=== PATIENT | female | born 1990 | race Caucasian/White ===

== ENCOUNTER → 2016-07-23 | Outpatient (CLI) | payer BC ==
[2016-07-29 05:33] LABS: 18KDIGG BAND NONREACTIVE (NONREACTIVE); 23KDIGG BAND NONREACTIVE (NONREACTIVE); 23KDIGM BAND NONREACTIVE (NONREACTIVE); 28KDIGG BAND NONREACTIVE (NONREACTIVE); 30KDIGG BAND NONREACTIVE (NONREACTIVE); 39KDIGG BAND NONREACTIVE (NONREACTIVE); 39KDIGM BAND NONREACTIVE (NONREACTIVE); 41KDIGG BAND REACTIVE (NONREACTIVE); 41KDIGM BAND NONREACTIVE (NONREACTIVE); 45KDIGG BAND NONREACTIVE (NONREACTIVE); 58KDIGG BAND NONREACTIVE (NONREACTIVE); 66KDIGG BAND NONREACTIVE (NONREACTIVE); 93KDIGG BAND NONREACTIVE (NONREACTIVE)
== END | disposition home or self-care (01) ==
LOC: C.LAB 19:02
PROVIDERS: ATTEND Family Medicine
DX: R52 Pain, unspecified (principal)

== ENCOUNTER → 2016-11-26 | Outpatient (CLI) | payer BC | END | disposition home or self-care (01) | LOC: C.PAPS 08:44 | PROVIDERS: ATTEND Obstetrics & Gynecology | DX: Z01.419 Encounter for gynecological examination (general) (routine) without abnormal findings (principal) ==

== ENCOUNTER → 2017-02-03 | Outpatient (CLI) | payer BC ==
[2017-02-03 09:47] LABS: BLOOD UREA NITROGEN 12 mg/dl (7-18); BUN/CREATININE RATIO 15.7 (10-20); CALCIUM 8.7 mg/dl (8.5-10.1); CARBON DIOXIDE 27 mmol/L (21-32); CHLORIDE 105 mmol/L (98-107); CREATININE 0.75 mg/dl (0.60-1.20); GLUCOSE 86 mg/dl (70-99); POTASSIUM 3.9 mmol/L (3.5-5.1); SODIUM 139 mmol/L (136-145)
[2017-02-03 09:57] LABS: THYROID STIMULATING HORMONE 0.683 uIu/ml (0.300-4.500)
== END | disposition home or self-care (01) ==
LOC: C.LAB 07:24
PROVIDERS: ATTEND Nurse Practitioner Adult Health
DX: R00.2 Palpitations (principal); F41.9 Anxiety disorder, unspecified

== ENCOUNTER → 2017-02-12 | Outpatient (CLI) | payer BC ==
[2017-02-12 17:43] LABS: URINE APPEARANCE CLEAR (CLEAR); URINE BILIRUBIN NEG (NEG); URINE COLOR YELLOW; URINE NITRITE NEG (NEG); URINE SPECIFIC GRAVITY 1.014 (1.000-1.030); UROBILINOGEN NEG (NEG)
[2017-02-12 17:50] LABS: PREG INTERNAL NEGATIVE QC NEG CLEAR BACKGROUND; PREG INTERNAL POSITIVE QC POS CONTROL LINE
[2017-02-12 17:52] LABS: MANUAL MICROSCOPIC REQUIRED? NO; REVIEW REQ? NO
== END | disposition home or self-care (01) ==
LOC: C.LAB1850 16:55
PROVIDERS: ATTEND Nurse Practitioner Adult Health
DX: R10.9 Unspecified abdominal pain (principal)

== ENCOUNTER → 2017-02-17 | Outpatient (CLI) | payer BC ==
--- NOTE | 2017-02-17 08:42 | DIAGNOSTIC IMAGING REPORT ---
ULTRASOUND RIGHT UPPER QUADRANT ABDOMEN CLINICAL HISTORY: Right upper quadrant abdominal pain. COMPARISON STUDY: No priors. TECHNIQUE: Real-time, grayscale, and color flow sonography of the right upper quadrant of the abdomen was performed. Images are reviewed in the transverse and longitudinal planes. FINDINGS: Liver: The liver is normal in size and echotexture. There is no intrahepatic biliary ductal dilatation. The main portal vein is patent. Gallbladder: The gallbladder is normal in appearance. No gallstones are identified. There is no gallbladder wall thickening or pericholecystic fluid. A sonographic Bishop's sign is reportedly absent. The common bile duct measures up to 0.3 cm in diameter. Pancreas: Visualized portions of the pancreatic head and body are normal in appearance. Right kidney: Survey images of the right kidney demonstrate normal size and echotexture. There is no hydronephrosis. Ascites: None. IMPRESSION: Unremarkable sonographic assessment of the right upper quadrant. No gallstones are identified. Electronically signed by: Stefan Garcia M.D. 02/17/2017 8:40 AM Dictated Date/Time: 02/17/2017 8:40 AM
== END | disposition home or self-care (01) ==
LOC: C.ULTR 08:15
PROVIDERS: ATTEND Nurse Practitioner Adult Health
DX: R10.811 Right upper quadrant abdominal tenderness (principal)

== ENCOUNTER → 2017-05-25 | Outpatient (CLI) | payer BC, OTHER | END | disposition home or self-care (01) | LOC: C.PAPS 10:34 | PROVIDERS: ATTEND Obstetrics & Gynecology | DX: N87.0 Mild cervical dysplasia (principal) ==

== ENCOUNTER → 2017-12-31 | Outpatient (CLI) | payer OTHER ==
[~2017-12-31] MED LIST: CLR10 PO
== END | disposition home or self-care (01) ==
LOC: C.RDSM 08:51
PROVIDERS: ATTEND Orthopaedic Surgery Sports Medicine
DX: M25.562 Pain in left knee (principal); M25.572 Pain in left ankle and joints of left foot

== ENCOUNTER 2018-09-28 13:10 | Inpatient (IN) ==
[2018-09-28] MEDS ORDERED: OXYTOCIN 30 UNITS/500 ML BAG IV PRN ×2 (14:11)
[2018-09-28] MEDS ORDERED: PENICILLIN G POTASSIUM 6 MU in DEXTROSE 5% 250 ML IV STA (14:11)
[2018-09-28 14:32] LABS: Hemoglobin 13.5 g/dL (12.0-16.0); Mean Corpuscular Volume 93.8 fL (80-100); Mean Platelet Volume 10.7 fL (7.4-10.4); Platelet Count 155 K/uL (130-400); RDW Coefficient of Variation 13.6 % (11.5-14.5); RDW Standard Deviation 46.5 fL (36.4-46.3); Red Blood Count 4.05 M/uL (4.2-5.4); White Blood Count 13.88 K/uL (4.8-10.8)
[2018-09-28 14:37] LABS: Mean Corpuscular Hgb Conc 35.5 g/dL (32-36)
[2018-09-28] MEDS: LACTATED RINGER'S 1,000 ML IV PRN ×2 (15:01→20:48)
--- NOTE | 2018-09-28 15:12 | History & Physical Report ---
Date of Service September 28, 2018 Assessment & Plan (1) Supervision of normal intrauterine in primigravida: Gross rupture on physical examination Tracing category 1 GBS positive, will start penicillin We will start Pitocin for induction of labor Anticipate vaginal delivery History of Present Illness Chief Complaint: leaking fluid Primary Care Provider: Mick Wilson MD The patient is a 28-year-old 1 para 0 EDC of 03 October, at 39+ weeks gestational age, who presents to labor and delivery with leaking of fluid. Patient states that it 094 5 hours this morning she had a gush of fluid which continued. The patient was evaluated in the office and vaginal pooling was seen with negative ferning. She was sent to labor and delivery for further evaluation. The patient has had a benign course. Laboratory values for the show a blood type of O-, antibody negative, she received RhoGam on 22 March, she is rubella immune, hepatitis B negative, she declined cell free DNA screening, she declined quad screen, she had a normal 1 hour Glucola x2, and a positive third trimester beta strep culture Allergies Allergy/AdvReac Type Severity Reaction Status Date / Time No Known Allergies Allergy Unknown Verified 11/25/17 01:41 Home Medications Home Medications Medication Instructions Recorded Confirmed Type vit no.[id number] 1 tab PO DAILY 09/25/18 09/25/18 History [ Vitamin] Patient History Medical History Anxiety HPV (human papilloma virus) infection Surgical History History of ankle surgery Left, 2003 History of colposcopy x 2 Social History Preferred Language: Tajik Communication Ability: Effective Beliefs That Will Affect Care: None marital status: Current Living Situation: Spouse Feels Safe at Home: Yes Smoking Status: Never smoker Second Hand Exposure: No Hx Alcohol Use: No Hx Substance Use: No Physical Exam 2 Constitutional: WD/WN, vitals as above Respiratory: Auscultation: lungs clear to auscultation bilaterally Cardiovascular: RRR, no murmur, no edema Extremities: no calf tenderness Gastrointestinal (Abdomen): Gravid, vertex, positive heart tones, irregular contractions palpable, estimated weight of 8 pounds Genitourinary: Cervix: 4/75/-2, gross rupture Results & Data Vital Signs (Past 12 Hours) Vital Signs Temp Pulse Resp BP 09/28/18 13:32 97.9 F 22 09/28/18 13:19 97.9 F 09/28/18 13:18 100 H 115/75
[2018-09-28] MEDS: PENICILLIN G POTASSIUM 3 MU in DEXTROSE 5% 100 ML IV PRN ×2 (19:05→23:13)
[2018-09-28] MEDS ORDERED: BUPIVACAINE 0.25% 30 ML VIAL ONE (19:56)
[2018-09-28] MEDS ORDERED: ePHEDrine sulfate 50 MG/ML AMP ONE (19:56)
[2018-09-28] MEDS ORDERED: fentaNYL citrate 100 MCG/2 ML VIAL ONE (19:56)
[2018-09-28] MEDS ORDERED: fentaNYL 2MCG/ML ROPIV 1.25MG/ML 100 ML BAG EPI ONE (19:57)
--- NOTE | 2018-09-28 20:11 | Anesthesiology Consultation ---
Date of Service September 28, 2018 Assessment & Plan (1) Encounter for pre-operative examination: Chart Review Chart Review: Acceptable Risk for Surgery, Patient NOT seen in Pre Admission Testing and Acceptable Risk for Labor Epidural Consults Requested none ASA ASA2 Proposed Anesthesia Anesthesia Type: Labor Epidural Risk / Benefits Reviewed With: PT / POA / Parent / Guardian, Accepts Plan and Informed Consent Obtained History Height/Weight Height: 5 ft 6 in Weight: 95.708 kg Allergies Allergy/AdvReac Type Severity Reaction Status Date / Time No Known Allergies Allergy Unknown Verified 09/28/18 16:32 Medications Home Medications Medication Instructions Recorded Confirmed Last Taken vit no.[id number] 1 tab PO DAILY 09/25/18 09/28/18 09/28/18 [ Vitamin] 0630 Active Medications Generic Name Dose Route Start Last Admin Trade Name Freq PRN Reason Stop Dose Admin Lactated Ringer's 1,000 mls @ 125 mls/hr 09/28/18 14:11 09/28/18 20:48 Lr IV 09/30/18 14:10 125 mls/hr .Q8H PRN Administration L&D Protocol Protocol Penicillin G Potassium 3 mu/ 106 mls @ 100 mls/hr 09/28/18 14:11 09/28/18 20:10 Dextrose IV 10/08/18 14:10 Infused Q4H PRN Titration Give until delivery Oxytocin 30 units in 500 mls @ 9 mls/hr 09/28/18 14:11 09/28/18 18:59 Pitocin IV 09/30/18 14:10 0.54 units/hr .Q24H PRN 9 mls/hr Labor Induction/Augmentation Titration Protocol 0.54 UNITS/HR NPO Date Last Intake of Fluids: 09/28/18 Time Last Intake of Fluids: 20:41 Date Last Intake of Solids: 09/28/18 Time Last Intake of Solids: 08:30 Past Medical History Medical History Anxiety HPV (human papilloma virus) infection Exercise / Class Metabolic Activity II 4-5 Yardwork/Stairs/Walk up hill Past Surgical History Surgical History History of ankle surgery Left, 2003 History of colposcopy x 2 Past Anesthesia History No Hx of Anesthesia Complications History of PONV No Hx of PONV and Hx of Motion Sickness Social History Smoking Status: Never smoker Hx Alcohol Use: No Hx Substance Use: No substance use type: does not use Review of Systems Patient denies active symptoms of GERD. Patient denies history of abnormal bleeding or bleeding disorder. Patient denies active use of anticoagulants other than low dose aspirin. Patient denies numbness, tingling or weakness in lower extremities. Physical Exam Vital Signs Last Vital Signs Temp 36.6 C 09/28/18 17:27 Pulse 97 H 09/28/18 20:01 Resp 18 09/28/18 17:49 BP 123/73 09/28/18 19:14 Pulse Ox 99 09/28/18 20:01 Constitutional not obese (Gravid uterus) ENMT Mouth: no TMJ abnormality and oral opening not small Thyromental Distance: > or= 3.5 Finger Breadths Mallampati Class: III Neck normal visual inspection; neck extension not limited Respiratory normal respiratory effort Auscultation: lungs clear to auscultation bilaterally Cardiovascular Rate/Rhythm: regular rate and regular rhythm Heart Sounds: no murmur Neurologic moves all extremities Motor/Sensory: no sensory deficit Psychiatric Orientation: alert and oriented x 3 Testing Laboratory Results 09/28/18 14:20
[2018-09-28] MEDS ORDERED: NALOXONE HCL 1 MG in SODIUM CHLORIDE 0.9% 1000ML 1,000 ML IV PRN (20:51)
[2018-09-28] MEDS ORDERED: NALOXONE HCL 0.4 MG/1 ML VIAL/CARP IV PRN (20:51)
[2018-09-28] MEDS ORDERED: fentaNYL 2MCG/ML ROPIV 1.25MG/ML 100 ML BAG EPI PRN (20:51)
[2018-09-28] MEDS ORDERED: DiphenhydrAMINE HCL 50 MG/ML VIAL IV PRN (20:51)
[2018-09-28] MEDS ORDERED: NALBUPHINE HCL INJ 10 MG/ML AMP IV PRN (20:51)
[2018-09-28] MEDS ORDERED: ONDANSETRON INJ 2 MG/ML 2 ML VIAL IV PRN (20:51)
[2018-09-28] MEDS ORDERED: ePHEDrine sulfate 50 MG/ML AMP IV PRN (20:51)
--- NOTE | 2018-09-28 21:20 | Labor Progress Brief Note ---
Date of Service September 28, 2018 Assessment & Plan (1) Supervision of normal intrauterine in primigravida: - tracing Cat II - patient comfortable with epidural - continue pitocin Physical Exam Genitourinary: Cervix; 8/100/(+)1 Results & Data Vital Signs (Past 12 Hours) Vital Signs Temp Pulse Resp BP Pulse Ox 09/28/18 21:17 99 H 89/53 L 09/28/18 21:14 95 H 98 09/28/18 21:13 89 90/53 L 09/28/18 21:09 93 H 99 09/28/18 21:04 96 H 99 09/28/18 21:01 94 H 114/69 09/28/18 20:59 102 H 112/65 98 09/28/18 20:57 95 H 118/70 09/28/18 20:55 88 120/70 09/28/18 20:54 86 98 09/28/18 20:53 86 125/70 09/28/18 20:51 91 H 115/65 09/28/18 20:49 91 H 119/69 99 09/28/18 20:47 93 H 123/73 09/28/18 20:45 86 121/72 09/28/18 20:44 95 H 99 09/28/18 20:43 100 H 115/61 09/28/18 20:41 92 H 119/68 09/28/18 20:39 95 H 122/71 98 09/28/18 20:37 88 121/82 09/28/18 20:35 96 H 136/83 09/28/18 20:34 108 H 100 09/28/18 20:33 105 H 133/83 09/28/18 20:31 97 H 136/88 09/28/18 20:29 98 H 134/82 97 09/28/18 20:24 95 H 98 09/28/18 20:19 95 H 98 09/28/18 20:14 101 H 98 09/28/18 20:09 99 H 98 09/28/18 20:01 97 H 99 09/28/18 19:56 95 H 100 09/28/18 19:51 96 H 99 09/28/18 19:46 89 99 09/28/18 19:41 102 H 100 09/28/18 19:37 101 H 92 09/28/18 19:36 84 100 09/28/18 19:31 90 99 09/28/18 19:26 101 H 99 09/28/18 19:21 90 99 09/28/18 19:16 91 H 98 09/28/18 19:14 95 H 123/73 09/28/18 19:13 97.5 F L 18 09/28/18 19:11 106 H 98 09/28/18 19:06 86 98 09/28/18 19:01 95 H 97 09/28/18 18:56 92 H 98 09/28/18 18:51 117 H 96 09/28/18 17:49 18 09/28/18 17:27 97.9 F 116 H 20 124/82 09/28/18 16:50 20 09/28/18 16:16 83 123/74 09/28/18 16:15 97.7 F 20 09/28/18 15:47 18 09/28/18 15:19 18 09/28/18 15:13 107 H 113/76 09/28/18 13:32 97.9 F 22 09/28/18 13:19 97.9 F 22 09/28/18 13:18 100 H 115/75
--- NOTE | 2018-09-28 23:04 | Labor Progress Brief Note ---
Date of Service September 28, 2018 Subjective can't feel contractions Assessment & Plan (1) Supervision of normal intrauterine in primigravida: - tracing Cat II - patient cannot feel ctx's - will decrease epidural rate to 7 - once patient can feel ctx's, will start 2nd stage Physical Exam Genitourinary: Cervix: Complete/(+)1 Results & Data Vital Signs (Past 12 Hours) Vital Signs Temp Pulse Resp BP Pulse Ox 09/28/18 22:59 103 H 100 09/28/18 22:54 111 H 99 09/28/18 22:49 98 H 116/66 99 09/28/18 22:44 93 H 100 09/28/18 22:39 102 H 100 09/28/18 22:35 93 H 126/69 09/28/18 22:34 93 H 100 09/28/18 22:30 20 09/28/18 22:29 117 H 100 09/28/18 22:28 115 H 92 09/28/18 22:24 98 H 100 09/28/18 22:20 96 H 131/75 09/28/18 22:19 107 H 100 09/28/18 22:14 98 H 100 09/28/18 22:09 97 H 99 09/28/18 22:04 89 99 09/28/18 22:03 89 115/70 09/28/18 22:00 18 09/28/18 21:59 101 H 99 09/28/18 21:57 103 H 110/63 09/28/18 21:54 117 H 100 09/28/18 21:52 114 H 117/62 09/28/18 21:49 110 H 100 09/28/18 21:47 95 H 88/50 L 09/28/18 21:44 87 100 09/28/18 21:42 81 99/55 L 09/28/18 21:39 86 100 09/28/18 21:36 86 97/56 L 09/28/18 21:34 85 99 09/28/18 21:31 107 H 103/55 L 09/28/18 21:30 18 09/28/18 21:29 80 99 09/28/18 21:27 80 97/53 L 09/28/18 21:24 84 100 09/28/18 21:20 100 H 93/53 L 09/28/18 21:19 99 H 99 09/28/18 21:17 99 H 89/53 L 09/28/18 21:15 97.5 F L 16 09/28/18 21:14 95 H 98 09/28/18 21:13 89 90/53 L 09/28/18 21:09 93 H 99 09/28/18 21:04 96 H 99 09/28/18 21:01 94 H 114/69 09/28/18 21:00 18 09/28/18 20:59 102 H 112/65 98 09/28/18 20:57 95 H 118/70 09/28/18 20:55 88 120/70 09/28/18 20:54 86 98 09/28/18 20:53 86 125/70 09/28/18 20:51 91 H 115/65 09/28/18 20:49 91 H 119/69 99 09/28/18 20:47 93 H 123/73 09/28/18 20:45 86 18 121/72 05 20:44 95 H 99 09/28/18 20:43 100 H 115/61 09/28/18 20:41 92 H 119/68 09/28/18 20:39 95 H 122/71 98 09/28/18 20:37 88 121/82 05 20:35 96 H 136/83 09/28/18 20:34 108 H 100 09/28/18 20:33 105 H 133/83 09/28/18 20:31 97 H 136/88 09/28/18 20:29 98 H 134/82 97 09/28/18 20:24 95 H 98 09/28/18 20:19 95 H 98 09/28/18 20:14 101 H 98 09/28/18 20:09 99 H 98 09/28/18 20:01 97 H 99 09/28/18 19:56 95 H 100 09/28/18 19:51 96 H 99 09/28/18 19:46 89 99 05 19:41 102 H 100 09/28/18 19:37 101 H 92 09/28/18 19:36 84 100 05 19:31 90 99 05 19:26 101 H 99 09/28/18 19:21 90 99 09/28/18 19:16 91 H 98 09/28/18 19:14 95 H 123/73 09/28/18 19:13 97.5 F L 18 09/28/18 19:11 106 H 98 09/28/18 19:06 86 98 09/28/18 19:01 95 H 97 09/28/18 18:56 92 H 98 09/28/18 18:51 117 H 96 09/28/18 17:49 18 09/28/18 17:27 97.9 F 116 H 20 124/82 09/28/18 16:50 20 09/28/18 16:16 83 123/74 09/28/18 16:15 97.7 F 20 09/28/18 15:47 18 09/28/18 15:19 18 09/28/18 15:13 107 H 113/76 09/28/18 13:32 97.9 F 22 09/28/18 13:19 97.9 F 22 09/28/18 13:18 100 H 115/75
[2018-09-28] MEDS ORDERED: Nursing to Pharmacy Communication ONE (23:10)
[2018-09-29 01:29] LABS: Base Excess Cord Arterial Bld -6.3 mEq/L (-9-1.8); Base Excess Cord Venous Blood -4.3 mEq/L (-7.7-1.9); CO2 Cord Arterial Blood 60 mmHg (39.1-73.5); Cord Venous Blood HCO3 21 mmol/L (18.4-26.8); Cord Venous Blood PCO2 39 mmHg (30.4-57.2); Cord Venous Blood PO2 31 mmHg (14.1-43.3); Cord Venous Blood pH 7.35 (7.20-7.44); HCO3 Cord Arterial Blood 23 mmol/L (19.7-28.5); PO2 Cord Arterial Blood 25.4 % (4.1-31.7)
--- NOTE | 2018-09-29 01:33 | Delivery Summary ---
DATE OF OPERATION: 09/29/2018 FINDINGS: Viable female with Apgars of 8 and 10. Baby delivered over a midline second-degree laceration. Cord gases, cord blood samples obtained. Placenta delivered spontaneously. Laceration repaired. Estimated blood loss 300 mL LABOR NOTE: The patient is a 28-year-old 1, para 0 with an EDC of 10/03/2018 at 39+ weeks gestational age who presented to Labor and Delivery for evaluation of leaking fluid. The patient states that at 0945 on 09/28/2018, she had a gush of fluid which continued. The patient was initially evaluated in the office and vaginal pooling was seen with negative ferning. She was sent to Labor and Delivery for further evaluation. The patient has had a benign course. Laboratory values for the show a blood type of O negative, antibody negative. She received RhoGAM on 03/22/2018. She is rubella immune, hepatitis B negative. She declined cell free DNA screening, she declined quad screen, she had normal 1-hour Glucola x2 and a positive third trimester beta strep culture. Upon admission, physical examination showed a gravid female, in no acute distress. Cervix was 4 cm dilated, 75% effaced, -2 station with gross rupture. The patient was GBS positive and was started on penicillin 6 million unit loading dose and 3 million units every 4 hours until delivery. Because of the ruptured membranes and positive GBS status, Pitocin was initiated for the spontaneous rupture of membranes. The patient progressed into a regular labor pattern, became uncomfortable. Anesthesia was consulted and epidural was placed. She progressed to full dilatation, began her second stage. She pushed for approximately 1 hour delivering the viable female with description as above. Nuchal cord x1 was reduced on the perineum. Cord was clamped and cut. Cord gases, cord blood samples obtained. Placenta was delivered spontaneously. Inspection of the perineum showed a midline second-degree laceration which was repaired with 4-0 Vicryl in routine fashion. Estimated blood loss was 300 mL. Sponge and needle count was correct. I attest to the content of the Intraoperative Record and any orders documented therein. Any exception s are noted below.
[2018-09-29] MEDS ORDERED: HYDROCORTISONE ACETATE 25 MG SUPP PR PRN (02:21)
[2018-09-29] MEDS ORDERED: BENZOCAINE 20% AER SPR 82.5 GM CAN EXT PRN (02:21)
[2018-09-29] MEDS ORDERED: SUPERCREAM 0.870% 15 GM JAR EXT PRN (02:21)
[2018-09-29] MEDS ORDERED: ACETAMINOPHEN W/CODEINE #3 1 TAB PO PRN (02:21)
[2018-09-29] MEDS ORDERED: ACETAMINOPHEN 325 MG TAB PO PRN (02:21)
[2018-09-29] MEDS ORDERED: OXYTOCIN 30 UNITS/500 ML BAG IV PRN (02:21)
--- NOTE | 2018-09-29 02:24 | Anesthesia Procedure Note ---
Date of Service September 29, 2018 Anesthesia Post Epidural Note Vital Signs Vital Signs: Temp Pulse Resp BP Pulse Ox 09/29/18 01:49 101 H 20 102/56 L 09/29/18 01:34 88 18 111/61 09/29/18 01:19 86 18 107/57 L 09/29/18 01:04 100 H 20 118/56 L 09/29/18 00:49 93 H 18 133/56 L 96 09/29/18 00:44 104 H 96 09/29/18 00:39 107 H 97 09/29/18 00:34 107 H 122/63 97 09/29/18 00:30 20 09/29/18 00:29 98 H 97 09/29/18 00:24 98 H 97 09/29/18 00:21 104 H 117/56 L 09/29/18 00:19 104 H 97 09/29/18 00:15 20 09/29/18 00:14 105 H 98 09/29/18 00:09 103 H 98 09/29/18 00:04 99 H 115/58 L 99 09/29/18 00:00 18 09/28/18 23:59 106 H 99 09/28/18 23:54 101 H 99 09/28/18 23:49 104 H 128/64 100 09/28/18 23:44 99 H 99 09/28/18 23:39 101 H 99 09/28/18 23:35 104 H 117/73 09/28/18 23:34 97 H 99 09/28/18 23:30 36.9 C 18 09/28/18 23:29 116 H 98 09/28/18 23:24 109 H 99 09/28/18 23:19 110 H 118/66 99 09/28/18 23:14 103 H 100 09/28/18 23:09 104 H 99 09/28/18 23:05 107 H 121/62 09/28/18 23:04 107 H 100 09/28/18 23:00 18 09/28/18 22:59 103 H 100 09/28/18 22:54 111 H 99 09/28/18 22:49 98 H 116/66 99 09/28/18 22:44 93 H 100 09/28/18 22:39 102 H 100 09/28/18 22:35 93 H 126/69 09/28/18 22:34 93 H 100 09/28/18 22:30 20 09/28/18 22:29 117 H 100 09/28/18 22:28 115 H 92 09/28/18 22:24 98 H 100 09/28/18 22:20 96 H 131/75 09/28/18 22:19 107 H 100 09/28/18 22:14 98 H 100 09/28/18 22:09 97 H 99 09/28/18 22:04 89 99 09/28/18 22:03 89 115/70 09/28/18 22:00 18 09/28/18 21:59 101 H 99 09/28/18 21:57 103 H 110/63 09/28/18 21:54 117 H 100 09/28/18 21:52 114 H 117/62 09/28/18 21:49 110 H 100 09/28/18 21:47 95 H 88/50 L 09/28/18 21:44 87 100 09/28/18 21:42 81 99/55 L 09/28/18 21:39 86 100 09/28/18 21:36 86 97/56 L 09/28/18 21:34 85 99 09/28/18 21:31 107 H 103/55 L 09/28/18 21:30 18 09/28/18 21:29 80 99 09/28/18 21:27 80 97/53 L 09/28/18 21:24 84 100 09/28/18 21:20 100 H 93/53 L 09/28/18 21:19 99 H 99 09/28/18 21:17 99 H 89/53 L 09/28/18 21:15 36.4 C L 16 09/28/18 21:14 95 H 98 09/28/18 21:13 89 90/53 L 09/28/18 21:09 93 H 99 09/28/18 21:04 96 H 99 09/28/18 21:01 94 H 114/69 09/28/18 21:00 18 09/28/18 20:59 102 H 112/65 98 09/28/18 20:57 95 H 118/70 09/28/18 20:55 88 120/70 09/28/18 20:54 86 98 09/28/18 20:53 86 125/70 09/28/18 20:51 91 H 115/65 09/28/18 20:49 91 H 119/69 99 09/28/18 20:47 93 H 123/73 09/28/18 20:45 86 18 121/72 09/28/18 20:44 95 H 99 09/28/18 20:43 100 H 115/61 09/28/18 20:41 92 H 119/68 09/28/18 20:39 95 H 122/71 98 09/28/18 20:37 88 121/82 09/28/18 20:35 96 H 136/83 09/28/18 20:34 108 H 100 09/28/18 20:33 105 H 133/83 09/28/18 20:31 97 H 136/88 09/28/18 20:29 98 H 134/82 97 09/28/18 20:24 95 H 98 09/28/18 20:19 95 H 98 09/28/18 20:14 101 H 98 09/28/18 20:09 99 H 98 09/28/18 20:01 97 H 99 09/28/18 19:56 95 H 100 09/28/18 19:51 96 H 99 09/28/18 19:46 89 99 09/28/18 19:41 102 H 100 09/28/18 19:37 101 H 92 09/28/18 19:36 84 100 09/28/18 19:31 90 99 09/28/18 19:26 101 H 99 09/28/18 19:21 90 99 09/28/18 19:16 91 H 98 09/28/18 19:14 95 H 123/73 09/28/18 19:13 36.4 C L 18 09/28/18 19:11 106 H 98 09/28/18 19:06 86 98 09/28/18 19:01 95 H 97 09/28/18 18:56 92 H 98 09/28/18 18:51 117 H 96 09/28/18 17:49 18 09/28/18 17:27 36.6 C 116 H 20 124/82 09/28/18 16:50 20 09/28/18 16:16 83 123/74 09/28/18 16:15 36.5 C 20 09/28/18 15:47 18 09/28/18 15:19 18 09/28/18 15:13 107 H 113/76 09/28/18 13:32 36.6 C 22 09/28/18 13:19 36.6 C 22 09/28/18 13:18 100 H 115/75 Pain Intensity Medial Abdomen: Pain Intensity: 0 Notes Mental Status: alert / awake / arousable and participated in evaluation Nausea / Vomiting: adequately controlled Pain: adequately controlled Airway Patency, RR, SpO2: stable & adequate BP & HR: stable & adequate Hydration State: stable & adequate Neuraxial Anesthesia: was administered and sensory block is resolving Anesthetic Complications: no major complications apparent and Pt Satisfied with anesthetic care Epidural: Removed without complications and With tip intact Notes: Epidural site clean, dry and intact. No signs of edema, erythema or bruising at insertion site. Pt instructed to request anesthesia if she has residual lower extremity numbness or if she develops lower extremity pain or weakness, back pain or headache.
[2018-09-29] MEDS ORDERED: CALCIUM CARBONATE 500 MG CHEWABLE TAB PO PRN (02:27)
[2018-09-29] MEDS ORDERED: CALCIUM CARBONATE 500 MG CHEWABLE TAB ONE (02:46)
[2018-09-29] MEDS: IBUPROFEN 600 MG TAB PO PRN ×4 (05:49→20:06)
[2018-09-29] MEDS: FERROUS SULFATE 325 MG TAB PO SCH (10:18)
[2018-09-29] MEDS: DOCUSATE SODIUM 100 MG CAP PO SCH ×2 (10:18→20:06)
[2018-09-29] MEDS: PRENATAL VITAMIN 1 TAB PO SCH (10:18)
[2018-09-30 06:20] LABS: Hemoglobin 12.7 g/dL (12.0-16.0); Mean Corpuscular Hgb Conc 34.3 g/dL (32-36); Mean Corpuscular Volume 96.6 fL (80-100); Mean Platelet Volume 10.5 fL (7.4-10.4); Platelet Count 163 K/uL (130-400); RDW Coefficient of Variation 14.2 % (11.5-14.5); RDW Standard Deviation 50.3 fL (36.4-46.3); Red Blood Count 3.83 M/uL (4.2-5.4); White Blood Count 10.88 K/uL (4.8-10.8)
--- NOTE | 2018-09-30 07:53 | Obstetrical Progress Note ---
Date of Service September 30, 2018 Assessment & Plan (1) Normal delivery at term: doing well, desires d/c home later today. f/u 6 wk pp check. instructions reviewed. Subjective Ambulation: ambulating normally Voiding: no voiding problems Diet Tolerance:: regular diet Lochia:: Small Feeding Type:: breast feeding desires d/c home later today Physical Exam Vital Signs (Past 24 Hours) Last Vital Signs Temp 98.4 F 09/29/18 23:45 Pulse 85 09/29/18 23:45 Resp 18 09/29/18 23:45 BP 103/69 09/29/18 23:45 Pulse Ox 99 09/29/18 16:10 Constitutional WD/WN, vitals as above Respiratory normal respiratory effort, lungs clear to auscultation Cardiovascular Rate/Rhythm: regular rate and regular rhythm Gastrointestinal (Abdomen) ff 2 down nt Musculoskeletal nt calves
[2018-09-30] MEDS: DOCUSATE SODIUM 100 MG CAP PO SCH (08:47)
[2018-09-30] MEDS: IBUPROFEN 600 MG TAB PO PRN (08:47)
[2018-09-30] MEDS: PRENATAL VITAMIN 1 TAB PO SCH (08:47)
[2018-09-30] MEDS: FERROUS SULFATE 325 MG TAB PO SCH (08:47)
[2018-09-30] MEDS ORDERED: DIPHTHERIA/TETANUS/PERTUSSIS 0.5 ML SYR/VIAL IM ONE (09:00)
[2018-09-30] MEDS ORDERED: BISACODYL 5 MG TABEC PO SCH (20:00)
== END 2018-09-30 14:30 | disposition home or self-care (01) | DRG 807 ==
LOC: OPB 13:10 → 4S1 13:13 → 4N 09-29 03:50

== ENCOUNTER 2021-05-14 19:44 | Inpatient (IN) ==
[2021-05-14] MEDS ORDERED: LACTATED RINGER'S 1,000 ML IV PRN (20:29)
[2021-05-14] MEDS ORDERED: OXYTOCIN 30 UNITS/500 ML BAG IV PRN (20:29)
[2021-05-14 20:52] LABS: Hematocrit (blood only) 37.5 % (37-47); Mean Corpuscular Hemoglobin 33.7 pg (25-34); Mean Corpuscular Hgb Conc 34.7 g/dL (32-36); Mean Corpuscular Volume 97.2 fL (80-100); Mean Platelet Volume 10.9 fL (7.4-10.4); Platelet Count 192 K/uL (130-400); RDW Coefficient of Variation 13.6 % (11.5-14.5); RDW Standard Deviation 48.5 fL (36.4-46.3); Red Blood Count 3.86 M/uL (4.2-5.4); White Blood Count 9.73 K/uL (4.8-10.8)
--- NOTE | 2021-05-14 21:10 | History & Physical Report ---
Date of Service May 14, 2021 Assessment & Plan (1) Normal labor: Plan: IUP at 40 weeks with advanced dilation and regular contractions will AROM when admission completed planning unmedicated but epidural analgesia if requested anticipate vaginal delivery Admission and Anticipated Discharge Date Admission Date: May 14, 2021 History of Present Illness Primary Care Provider: Mick Wilson MD Patient is a 30 yo white female EDC 05/14/21 who presents with regular contractions starting after cervix exam today at her OB visit. (-)SPROM or bloody show. She was 5-6 cm on prior exam. GBS-negative O-negative Allergies Allergy/AdvReac Type Severity Reaction Status Date / Time No Known Allergies Allergy Unknown Verified 05/14/21 08:46 No Known Drug Allergies Allergy Uncoded 02/19/21 09:03 Home Medications Medication Instructions Recorded Confirmed Type prenat.vits,kamla,xtb-vpma-uyfxd 1 tab PO DAILY 05/08/20 05/14/21 History Patient History Medical History (Updated 05/14/21 @ 21:08 by Marilyn Wills MD, FACOG) Anxiety Arthralgia of multiple joints ASCUS with positive high risk HPV cervical 01/29/2016 & 02/09/2014 Chondrocostal junction syndrome MECCA I (cervical intraepithelial neoplasia I) Encounter for anatomic survey Encounter for pre-operative examination 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 H/O varicella Menstrual migraine Miscarriage Premature rupture of membranes Supervision of normal intrauterine in multigravida Surgical History History of ankle surgery Left, 2003 History of colposcopy 04/24/16 & 03/09/14-Both results CINI S/P dilatation and curettage Family History Father Atrial fibrillation Mother Breast cancer, Onset Age: 42 Thyroid disorder Aunt Diabetes Thyroid disorder Maternal Grandmother (Maternal) Thyroid disorder Denies family history of Ovarian cancer Colorectal cancer Social History Smoking Status: Never smoker Second Hand Exposure: No; Hx Alcohol Use: No Hx Substance Use: No Preferred Language: [place] Communication Ability: Effective Mortgage Originator Required: No Beliefs That Will Affect Care: None marital status: marital status details: Javier Gonsales (30) [phone] Current Living Situation: Spouse and Family Current Living Situation Comment: lives with spouse, daughter, 1 dog, 1 cat, spouse to change litter. current occupational status: employed current occupation: real estate Other Information That Helps Us Care for You: No Feels Safe at Home: Yes Safety Concerns: Feels Safe At This Time Assistive Devices: None Review of Systems All systems reviewed & are unremarkable except as noted in HPI & below Physical Exam Constitutional: WD/WN, vitals as above Respiratory: normal respiratory effort, lungs clear to auscultation Cardiovascular: RRR, no murmur, no edema Psychiatric: A+Ox3, euthymic affect Genitourinary: OB Exam Abdomen: + vertex and + regular contractions ( Q 3-5 minutes) Manual OB Exam: + cervical dilation 7 cm, + cervical effacement 90% and + station -2 OB Exam Monitor Tracing: + external FHT monitor used, + external uterine monitor used, + category I and + normal FHT variability Results & Data ([facility]) Vital Signs (Past 12 Hours) Vital Signs Temp Pulse Resp BP 05/14/21 20:01 98.1 F 18 05/14/21 19:56 89 120/73 Code Status & VTE Plan VTE Prophylaxis Plan VTE Prophylaxis will be ordered: No Coding Level of Care Code None Diagnoses Normal labor O80; Z37.9
[2021-05-14] MEDS ORDERED: ePHEDrine sulfate 50 MG/ML AMP ONE (22:24)
[2021-05-14] MEDS ORDERED: SODIUM CHLORIDE 0.9% INJ 10 ML VIAL ONE (22:24)
[2021-05-14] MEDS ORDERED: fentaNYL citrate 100 MCG/2 ML VIAL ONE (22:24)
[2021-05-14] MEDS ORDERED: BUPIVACAINE 0.25% 30 ML VIAL ONE (22:24)
[2021-05-14] MEDS ORDERED: fentaNYL 2MCG/ML ROPIVACAINE 1.25MG/ML 100 ML BAG EPI ONE (22:25)
[2021-05-15] MEDS ORDERED: DIPHTHERIA/TETANUS/PERTUSSIS 0.5 ML SYR/VIAL IM ONE (02:06)
[2021-05-15] MEDS ORDERED: SUPERCREAM 0.870% 15 GM JAR EXT PRN (02:06)
[2021-05-15] MEDS ORDERED: HYDROCORTISONE ACETATE 25 MG SUPP PR PRN (02:06)
[2021-05-15] MEDS ORDERED: BENZOCAINE 20% AER SPR 82.5 GM CAN EXT PRN (02:06)
[2021-05-15] MEDS ORDERED: ACETAMINOPHEN 325 MG TAB PO PRN (02:06)
[2021-05-15] MEDS ORDERED: oxyCODONE/ACETAMINOPHEN 5mg/325mg TAB PO PRN (02:06)
[2021-05-15] MEDS ORDERED: OXYTOCIN 30 UNITS/500 ML BAG IV PRN (02:06)
[2021-05-15] MEDS ORDERED: ONDANSETRON INJ 2 MG/ML 2 ML VIAL IV PRN (02:10)
[2021-05-15] MEDS ORDERED: diphenhydrAMINE 50 MG/ML VIAL IV PRN (02:10)
[2021-05-15] MEDS ORDERED: NALBUPHINE HCL INJ 10 MG/ML AMP IV PRN (02:10)
[2021-05-15] MEDS ORDERED: fentaNYL 2MCG/ML ROPIVACAINE 1.25MG/ML 100 ML BAG EPI PRN (02:10)
[2021-05-15] MEDS ORDERED: ePHEDrine sulfate 50 MG/ML AMP IV PRN (02:10)
[2021-05-15] MEDS ORDERED: NALOXONE HCL 1 MG in SODIUM CHLORIDE 0.9% 1000ML 1,000 ML IV PRN (02:10)
[2021-05-15] MEDS ORDERED: NALOXONE HCL 0.4 MG/1 ML VIAL/CARP IV PRN (02:10)
--- NOTE | 2021-05-15 02:14 | Delivery Summary ---
Vaginal Delivery Summary Date of Service May 15, 2021 Vaginal Delivery Summary and 1st Degree LAC Patient is a 30-year-old 2 para 1-0-0-1 white female [facility] who presents with regular contractions. Membranes were ruptured for clear fluid. She requested epidural dural analgesia which was effective. She progressed to complete dilation with the urge to push. She pushed effectively over intact perineum for delivery of a viable female . The was delivered from the direct occiput posterior presentation. Rest of the delivered easily. She was placed on the mother's abdomen for further attention and drying. She was vigorous and crying and moving all 4 limbs. After 1 minute, the cord was clamped and cut. The placenta was expressed intact with a three-vessel cord. bleeding was controlled with dilute Pitocin and fundal massage. A first-degree perineal laceration was repaired with 3-0 chromic in the usual fashion. Estimated blood loss was 200 cc. Mother and were in good condition after delivery. [facility] [place] Delivery Charge Delivery Type Details: and 1st Degree LAC
[2021-05-15] MEDS: IBUPROFEN 600 MG TAB PO PRN ×3 (04:43→16:51)
--- NOTE | 2021-05-15 06:45 | Anesthesiology Consultation ---
Date of Service May 15, 2021 Assessment & Plan (1) Encounter for pre-operative examination: Chart Review Chart Review: Patient NOT seen in Pre Admission Testing and Acceptable Risk for Labor Epidural Consults Requested none History Height/Weight Height: 5 ft 7 in Weight: 100.244 kg Allergies Allergy/AdvReac Type Severity Reaction Status Date / Time No Known Allergies Allergy Unknown Verified 05/14/21 08:46 No Known Drug Allergies Allergy Uncoded 02/19/21 09:03 Medications Home Medications Medication Instructions Recorded Confirmed Last Taken prenat.vits,kamla,bta-tnue-pojdo 1 tab PO DAILY 05/08/20 05/14/21 05/14/21 Active Medications Generic Name Dose Route Start Last Admin Trade Name Freq PRN Reason Stop Dose Admin Benzocaine 1 appln 05/15/21 02:06 05/15/21 04:22 Benzocaine 20% Aer Spr 82.5 Gm Can EXT 06/14/21 02:05 1 appln PRN PRN Administration Perineal Discomfort Oxytocin 30 units in 500 mls @ 333.333 mls/hr 05/14/21 20:29 05/15/21 02:28 Pitocin IV 06/13/21 20:28 Infused .Q1H30M PRN Titration Bleeding Control Protocol 20 UNITS/HR Lactated Ringer's 1,000 mls @ 125 mls/hr 05/14/21 20:29 05/15/21 02:23 Lr IV 05/16/21 20:28 Infused .Q8H PRN Infusion L&D Protocol Protocol Ibuprofen 600 mg 05/15/21 02:06 05/15/21 04:43 Ibuprofen 600 Mg Tab PO 06/14/21 02:05 600 mg Q4H PRN Administration Pain/HERNANDEZ/Cramping/Fever Past Medical History Medical History Anxiety Arthralgia of multiple joints ASCUS with positive high risk HPV cervical 01/29/2016 & 02/09/2014 Chondrocostal junction syndrome MECCA I (cervical intraepithelial neoplasia I) Encounter for anatomic survey Encounter for pre-operative examination 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 H/O varicella Menstrual migraine Miscarriage Premature rupture of membranes Supervision of normal intrauterine in multigravida Exercise / Class Metabolic Activity II 4-5 Yardwork/Stairs/Walk up hill Past Family History Family History Father Atrial fibrillation Mother Breast cancer, Onset Age: 42 Thyroid disorder Aunt Diabetes Thyroid disorder Maternal Grandmother (Maternal) Thyroid disorder Denies family history of Ovarian cancer Colorectal cancer Past Surgical History Surgical History History of ankle surgery Left, 2003 History of colposcopy 04/24/16 & 03/09/14-Both results CINI S/P dilatation and curettage Past Anesthesia History No Hx of Anesthesia Complications and No Family Hx of Anesthesia Complications History of PONV No Hx of PONV and No Hx of Motion Sickness Social History Smoking Status: Never smoker Do You Dip or Chew Tobacco: No Hx Alcohol Use: No Hx Substance Use: No substance use type: does not use Physical Exam Vital Signs Last Vital Signs Temp 36.5 C 05/15/21 04:35 Pulse 64 05/15/21 04:35 Resp 18 05/15/21 04:35 BP 106/69 05/15/21 04:35 Pulse Ox 95 05/15/21 02:00 Testing Laboratory Results 05/14/21 20:40
--- NOTE | 2021-05-15 07:34 | Obstetrical Progress Note ---
Date of Service <Colleen Stevens MD - Last Filed: 05/15/21 07:34> May 15, 2021 Assessment & Plan <Colleen Stevens MD - Last Filed: 05/15/21 07:34> (1) Encounter for care and examination after delivery: PPD 1: stable, routine management * patient voiding and ambulating without difficulty * pain well controlled on analgesia * tolerating regular diet * breast/bottle feeding * reassess d/c readiness this evening vs tomorrow <Marilyn Wills MD, FACOG - Last Filed: 05/15/21 07:52> (1) Encounter for care and examination after delivery: Subjective <Colleen Stevens MD - Last Filed: 05/15/21 07:34> Brynn is a 30-year-old who is now PPD 1 following spontaneous vaginal delivery at 40 weeks. Reports feeling well overall this morning. Reports some abdominal cramping pain well managed on analgesics. Voiding well. Tolerating regular diet without nausea or vomiting and able to ambulate without difficulty. Some persistent lochia (1 pad since yesterday) with some improvement this morning. . Review of Systems Denies fever, chills, sweats Denies shortness of breath, difficulty breathing, chest pain, palpitations, chest pressure. Denies breast pain. Denies dysuria. Denies headache or changes in vision Physical Exam <Colleen Stevens MD - Last Filed: 05/15/21 07:34> General: Alert, oriented. No acute distress. Cardiac: Regular rate and rhythm, no murmurs/rubs/gallops. Respiratory: Clear to auscultation bilaterally a/p, no wheezes/rales/rhonchi. No increased work of breathing. Symmetrical chest rise. No respiratory distress. Abdomen: Soft, nontender, nondistended. Bowel sounds present. Uterus: Uterine fundus firm, palpable 1 cm below umbilicus. Lower Extremities: No lower extremity edema or swelling. No deep calf pain. Stanley's negative bilaterally.. Results & Data ([facility]) <Colleen Stevens MD - Last Filed: 05/15/21 07:34> Vital Signs (Past 12 Hours) Vital Signs Temp Pulse Pulse Resp BP BP Pulse Ox 05/15/21 04:35 36.5 C 64 18 106/69 05/15/21 04:04 74 115/58 L 05/15/21 03:55 18 05/15/21 03:25 18 05/15/21 02:55 18 05/15/21 02:40 18 05/15/21 02:25 18 05/15/21 02:14 78 110/58 L 05/15/21 02:10 18 05/15/21 02:00 91 H 107/72 95 05/15/21 01:59 85 93 05/15/21 01:55 82 18 96 05/15/21 01:50 83 96 05/15/21 01:45 90 94 05/15/21 01:44 90 119/58 L 94 05/15/21 01:40 96 H 96 05/15/21 01:35 116 H 93 05/15/21 01:32 114 H 92 05/15/21 01:30 100 H 112/59 L 96 05/15/21 01:27 114 H 93 05/15/21 01:25 106 H 98 05/15/21 01:20 97 H 97 05/15/21 01:18 115 H 90 05/15/21 01:16 96 H 127/58 L 05/15/21 01:15 96 H 95 05/15/21 01:10 94 H 96 05/15/21 01:05 112 H 93 05/15/21 01:00 91 H 117/56 L 96 05/15/21 00:55 100 H 97 05/15/21 00:54 110 H 93 05/15/21 00:50 109 H 97 05/15/21 00:45 94 H 127/59 L 98 05/15/21 00:42 110 H 92 05/15/21 00:40 95 H 100 05/15/21 00:35 88 99 05/15/21 00:30 86 99 05/15/21 00:29 82 126/72 05/15/21 00:27 92 H 93 05/15/21 00:25 98 H 100 05/15/21 00:20 90 97 05/15/21 00:15 97 H 99 05/15/21 00:14 91 H 115/63 93 05/15/21 00:10 91 H 96 05/15/21 00:05 88 100 05/15/21 00:00 36.6 C 95 H 18 99 05/14/21 23:59 81 123/74 05/14/21 23:55 89 98 05/14/21 23:50 95 H 99 05/14/21 23:45 97 H 126/76 93 05/14/21 23:40 90 98 05/14/21 23:35 95 H 100 05/14/21 23:30 85 18 100 05/14/21 23:29 85 141/73 H 05/14/21 23:27 85 141/69 H 05/14/21 23:25 87 134/68 100 05/14/21 23:23 78 136/72 05/14/21 23:21 85 134/64 05/14/21 23:20 94 H 100 05/14/21 23:19 79 133/64 05/14/21 23:17 77 137/63 91 05/14/21 23:15 81 124/66 100 05/14/21 23:13 96 H 131/72 05/14/21 23:11 88 135/76 05/14/21 23:10 91 H 100 05/14/21 23:09 80 131/74 05/14/21 23:07 81 126/70 05/14/21 23:05 84 135/69 100 05/14/21 23:03 72 125/62 05/14/21 23:01 92 H 137/68 05/14/21 23:00 75 18 99 05/14/21 22:59 100 H 140/67 05/14/21 22:57 100 H 143/57 H 05/14/21 22:55 74 137/67 99 05/14/21 22:52 111 H 139/87 05/14/21 22:50 88 98 05/14/21 22:45 98 H 100 05/14/21 22:40 114 H 100 05/14/21 22:35 103 H 98 05/14/21 22:00 36.5 C 05/14/21 20:01 36.7 C 18 05/14/21 19:56 89 120/73 <Marilyn Wills MD, FACOG - Last Filed: 05/15/21 07:52> Co-Signing Physician Notes Resident Physician Supervision Note: I was present with Dr. Stevens during the history and exam. I discussed the case with the resident and agree with the findings and plan as documented in the note. Any exceptions or clarifications are listed here: [None] Documented By: Marilyn Wills MD, FACOG Resident Activity Tracking <Colleen Stevens MD - Last Filed: 05/15/21 07:34> Resident Involvement: Resident Care Provided Care Provided: OB Delivery
[2021-05-15] MEDS: PRENATAL VITAMIN 1 TAB PO SCH (09:25)
[2021-05-15] MEDS: DOCUSATE SODIUM 100 MG CAP PO SCH ×2 (09:25→20:01)
--- NOTE | 2021-05-15 11:01 | Anesthesia Procedure Note ---
Date of Service May 15, 2021 Anesthesia Post Epidural Note Vital Signs Vital Signs: Temp Pulse Resp BP Pulse Ox 36.7 C 76 16 121/85 99 05/15/21 07:10 05/15/21 07:10 05/15/21 07:10 05/15/21 07:10 05/15/21 07:10 Pain Intensity Abdomen: Pain Intensity: 3 Hand: Pain Intensity: 3 Notes Mental Status: alert / awake / arousable Nausea / Vomiting: adequately controlled Pain: adequately controlled Airway Patency, RR, SpO2: stable & adequate BP & HR: stable & adequate Hydration State: stable & adequate Neuraxial Anesthesia: was administered and sensory block resolved Anesthetic Complications: no major complications apparent and Pt Satisfied with anesthetic care Epidural: Removed without complications and With tip intact
[2021-05-16] MEDS: IBUPROFEN 600 MG TAB PO PRN (06:04)
[2021-05-16 06:58] LABS: Hematocrit (blood only) 34.7 % (37-47); Hemoglobin 11.9 g/dL (12.0-16.0); Mean Corpuscular Hemoglobin 33.9 pg (25-34); Mean Corpuscular Hgb Conc 34.3 g/dL (32-36); Mean Corpuscular Volume 98.9 fL (80-100); Mean Platelet Volume 10.7 fL (7.4-10.4); Platelet Count 166 K/uL (130-400); RDW Coefficient of Variation 14.1 % (11.5-14.5); RDW Standard Deviation 50.6 fL (36.4-46.3); Red Blood Count 3.51 M/uL (4.2-5.4); White Blood Count 8.84 K/uL (4.8-10.8)
--- NOTE | 2021-05-16 07:03 | Obstetrical Progress Note ---
Date of Service <Colleen Stevens MD - Last Filed: 05/16/21 07:02> May 16, 2021 Assessment & Plan <Colleen Stevens MD - Last Filed: 05/16/21 07:02> (1) Encounter for care and examination after delivery: PPD 2: stable, routine management * patient voiding and ambulating without difficulty * pain well controlled on analgesia * tolerating regular diet * * anticipate discharge today * 6-week outpatient OB follow-up <Callum Gamez MD - Last Filed: 05/16/21 07:27> (1) Encounter for care and examination after delivery: Subjective <Colleen Stevens MD - Last Filed: 05/16/21 07:02> Brynn is a 30-year-old who is now PPD 2 following spontaneous vaginal delivery at 40 weeks. Reports feeling well overall this morning. 2/10 pain well managed on analgesics. Voiding without difficulty. Tolerating meals well and able to ambulate without assistance. Some persistent lochia with improvement this morning. . Review of Systems Denies fever, chills, sweats Denies shortness of breath, difficulty breathing, chest pain, palpitations, chest pressure. Denies breast pain. Denies dysuria. Denies headache or changes in vision Physical Exam <Colleen Stevens MD - Last Filed: 05/16/21 07:02> General: Alert, oriented. No acute distress. Cardiac: Regular rate and rhythm, no murmurs/rubs/gallops. Respiratory: Clear to auscultation bilaterally a/p, no wheezes/rales/rhonchi. No increased work of breathing. Symmetrical chest rise. No respiratory distress. Abdomen: Soft, nontender, nondistended. Bowel sounds present. Uterus: Uterine fundus firm, palpable 1 cm below umbilicus. Lower Extremities: No lower extremity edema or swelling. No deep calf pain. Stanley's negative bilaterally.. Results & Data ([facility]) <Colleen Stevens MD - Last Filed: 05/16/21 07:02> Vital Signs (Past 12 Hours) Vital Signs Temp Pulse Resp BP 05/15/21 23:15 36.9 C 67 18 111/74 05/15/21 19:50 36.8 C 79 18 102/67 <Callum Gamez MD - Last Filed: 05/16/21 07:27> Co-Signing Physician Notes Patient seen and evaluated and agree with the above findings and plan. Stable for discharge Resident Activity Tracking <Colleen Stevens MD - Last Filed: 05/16/21 07:02> Resident Involvement: Resident Care Provided Care Provided: OB Delivery
[2021-05-16 07:48] VITALS: BP 105/70; PULSE 65; TEMP 97.7; O2SAT 96
[2021-05-16] MEDS: PRENATAL VITAMIN 1 TAB PO SCH (07:59)
[2021-05-16] MEDS: DOCUSATE SODIUM 100 MG CAP PO SCH (07:59)
[2021-05-16] MEDS ORDERED: bisacodyL 5 MG TABEC PO SCH (20:00)
[2021-05-17] MEDS ORDERED: bisacodyL 10 MG SUPP PR PRN (02:06)
== END 2021-05-16 11:30 | disposition home or self-care (01) | DRG 807 ==
LOC: OPB 19:44 → 4S1 19:46 → 4S2 05-15 04:51
DX: Z20.822 Contact with and (suspected) exposure to COVID-19; Z3A.40 40 weeks gestation of pregnancy; Z37.0 Single live birth; Z87.59 Personal history of other complications of pregnancy, childbirth and the puerperium; O70.0 First degree perineal laceration during delivery

== ENCOUNTER 2023-10-28 10:29 | Inpatient (IN) ==
[2023-10-28] MEDS ORDERED: LIDOCAINE 1% LOCAL 20 ML VIAL INFIL PRN (11:40)
[2023-10-28] MEDS ORDERED: OXYTOCIN 30 UNITS/NSS 30 UNITS/500 ML BAG IV PRN (11:40)
[2023-10-28] MEDS: LACTATED RINGER'S 1,000 ML IV PRN (12:01)
[2023-10-28] MEDS: OXYTOCIN 30 UNITS/NSS 30 UNITS/500 ML BAG IV PRN ×2 (12:07→20:03)
[2023-10-28 12:34] LABS: Hematocrit (blood only) 37.8 % (37.0-47.0); Hemoglobin 13.2 g/dl (12.0-16.0); Mean Corpuscular Hemoglobin 33.2 pg (25.0-34.0); Mean Corpuscular Hgb Conc 34.9 g/dL (32.0-36.0); Mean Corpuscular Volume 95.2 fL (80.0-100.0); Mean Platelet Volume 11.4 fL (9.4-12.4); Platelet Count 149 K/uL (130-400); RDW Coefficient of Variation 13.7 % (11.5-14.5); RDW Standard Deviation 47.8 fL (36.4-46.3); Red Blood Count 3.97 M/uL (4.20-5.40); White Blood Count 9.79 K/ul (4.8-10.8)
[2023-10-28] MEDS: LIDOCAINE 2%/EPINEPHRINE 1:200,000 20 ML PF ONE (15:03)
[2023-10-28] MEDS: fentANYL 2 MCG/ML BUPIVacaine 0.125%-NSS 100ML BAG ONE (15:04)
--- NOTE | 2023-10-28 15:14 | Anesthesiology Consultation ---
Date of Service October 28, 2023 Assessment & Plan Chart Review Chart Review: Acceptable Risk for Labor Epidural Consults Requested none History Height/Weight Height: 5 ft 7 in Weight: 101.151 kg Allergies Allergy/AdvReac Type Severity Reaction Status Date / Time No Known Allergies Allergy Unknown Verified 10/27/23 09:22 Medications Home Medications Medication Instructions Recorded Confirmed Last Taken breast pump #1 ea 09/08/23 10/27/23 Unknown vit no.133-ferrous 1 tab PO DAILY 10/28/23 10/28/23 10/28/23 07:30 fumarate 28 mg-folic acid 800 mcg tablet () Active Medications Generic Name Dose Route Start Last Admin Trade Name Freq PRN Reason Stop Dose Admin Oxytocin 30 units in 500 mls @ 6 mls/hr 10/28/23 11:40 10/28/23 13:15 Pitocin 30 Units/Nss IV 10/30/23 11:39 0.36 units/hr .Q24H PRN 6 mls/hr Labor Induction/Augmentation Titration Protocol 0.36 UNITS/HR Lactated Ringer's 1,000 mls @ 125 mls/hr 10/28/23 11:40 10/28/23 14:28 Lr IV 10/30/23 11:39 999 mls/hr .Q8H PRN Administration L&D Protocol Protocol Past Medical History Medical History (Updated 09/08/23 @ 13:41 by Tatianna Ndiaye MD, FACOG) MECCA I (cervical intraepithelial neoplasia I) ASCUS with positive high risk HPV cervical 01/29/2016 & 02/09/2014 H/O varicella Menstrual migraine Chondrocostal junction syndrome Arthralgia of multiple joints Past Family History Family History Father Atrial fibrillation Mother Breast cancer, Onset Age: 42 Thyroid disorder Aunt Diabetes Thyroid disorder Grandmother (Maternal) Thyroid disorder Denies family history of Ovarian cancer Colorectal cancer Past Surgical History Surgical History S/P dilatation and curettage History of colposcopy 04/24/16 & 03/09/14-Both results CINI History of ankle surgery Left, 2003 Social History Smoking Status: Never smoker Do You Dip or Chew Tobacco: No Hx Alcohol Use: No Hx Substance Use: No substance use type: does not use Physical Exam Vital Signs Last Vital Signs Temp 36.8 C 10/28/23 15:00 Pulse 81 10/28/23 15:12 Resp 20 10/28/23 15:00 BP 110/53 L 10/28/23 15:12 Pulse Ox 98 10/28/23 15:12 Testing Laboratory Results 10/28/23 11:57
[2023-10-28] MEDS ORDERED: SODIUM CHLORIDE 0.9% PF INJ 10 ML VIAL EPI PRN (15:17)
[2023-10-28] MEDS ORDERED: ROPIVACAINE 0.5% PF 5 MG/ML 20 ML VIAL EPI PRN (15:17)
[2023-10-28] MEDS ORDERED: fentANYL 2 MCG/ML BUPIVacaine 0.125%-NSS 100ML BAG EPI PRN (15:17)
[2023-10-28] MEDS ORDERED: fentaNYL citrate PF 100 MCG/2 ML VIAL EPI PRN (15:17)
[2023-10-28] MEDS ORDERED: NALOXONE HCL 0.4 MG/1 ML VIAL/CARP IV PRN (15:17)
[2023-10-28] MEDS ORDERED: NALBUPHINE HCL 5 MG in SYRINGE 0 ML IV PRN (15:17)
[2023-10-28] MEDS ORDERED: BUPIVACAINE 0.25% PF 30 ML VIAL EPI PRN (15:17)
[2023-10-28] MEDS ORDERED: diphenhydrAMINE 50 MG/ML VIAL IV PRN (15:17)
[2023-10-28] MEDS ORDERED: NALOXONE HCL 1 MG in SODIUM CHLORIDE 0.9% 1,000 ML IV PRN (15:17)
[2023-10-28] MEDS ORDERED: LIDOCAINE 2% MPF LOCAL 5 ML VIAL EPI PRN (15:17)
[2023-10-28] MEDS: BUPIVACAINE 0.25% PF 30 ML VIAL ONE (15:22)
[2023-10-28] MEDS: fentaNYL citrate PF 100 MCG/2 ML VIAL ONE (15:22)
[2023-10-28] MEDS: ePHEDrine sulfate 50 MG/ML AMP ONE (15:22)
[2023-10-28] MEDS: SODIUM CHLORIDE 0.9% PF INJ 10 ML VIAL ONE (15:22)
[2023-10-28] MEDS: ONDANSETRON INJ 2 MG/ML 2 ML VIAL ONE (15:54)
[2023-10-28] MEDS ORDERED: ONDANSETRON INJ 2 MG/ML 2 ML VIAL IV PRN (16:10)
[2023-10-28] MEDS: ePHEDrine sulfate 50 MG/ML AMP IV PRN (16:22)
--- NOTE | 2023-10-28 19:41 | Delivery Summary ---
Vaginal Delivery Summary Date of Service October 28, 2023 Vaginal Delivery Summary DIAGNOSES: 1. Mora intrauterine at 39w3d gestation. 2. Spontaneous rupture of membranes and onset of labor. 3. Group B Streptococcus Neg. PROCEDURE: Spontaneous vaginal delivery and repair of second degree laceration. SURGEON: Denia Trevizo MD. YARN TEXTURE MACHINE OPERATOR: None. QUANTITATIVE BLOOD LOSS: 114 mL. COMPLICATIONS: None. PLACENTA: Spontaneous and intact with a 3-vessel cord. DISPOSITION: Stable to labor and delivery. DESCRIPTION: The patient pushed well and brought the head to in DOA position. The infant's head was allowed to deliver with contraction force and no further active pushing, with the perineum protected during this time. There was no nuchal cord. The shoulders and body delivered without any difficulty, and the infant was placed on the maternal abdomen. It was vigorous and moving all extremities, and making respiratory efforts. The cord was doubly clamped by the MD after a 60 second delay per the patient's wishes, and then cut by the FOB. The placenta delivered spontaneously and was noted to be intact and with a 3VC. The cervix, vagina and perineum were examined and were found to have a second degree laceration which was repaired in the usual manner with vicryl suture, including a crown stitch. The fundus was firm and lochia minimal immediately after delivery. [facility] Vaginal Delivery Charge Vaginal Delivery Codes: 31279 global code for the antepartum, delivery, and post-
[2023-10-28] MEDS ORDERED: bisacodyL 10 MG SUPP PR PRN (19:46)
[2023-10-28] MEDS ORDERED: DIPHTHER/TETAN/PERTUS Vaccine (Tdap, Adol/Adult) 0.5mL IM ONE (19:46)
[2023-10-28] MEDS ORDERED: oxyCODONE/ACETAMINOPHEN 5mg/325mg TAB PO PRN (19:46)
[2023-10-28] MEDS ORDERED: ACETAMINOPHEN 325 MG TAB PO PRN (19:46)
[2023-10-28] MEDS ORDERED: HYDROCORTISONE ACETATE 25 MG SUPP PR PRN (19:46)
[2023-10-28] MEDS: fentaNYL citrate PF 100 MCG/2 ML VIAL EPI STA (19:53)
[2023-10-28] MEDS: BUPIVACAINE 0.25% PF 30 ML VIAL EPI STA (19:53)
[2023-10-28] MEDS: LIDOCAINE 2%/EPINEPHRINE 1:200,000 20 ML PF EPI STA (19:54)
[2023-10-28] MEDS: SODIUM CHLORIDE 0.9% PF INJ 10 ML VIAL EPI STA (19:54)
[2023-10-28] MEDS: BENZOCAINE 20% SPRY 85 APPLN/85 GM CAN EXT PRN (20:57)
[2023-10-28] MEDS: DOCUSATE SODIUM 100 MG CAP PO SCH (20:57)
[2023-10-28] MEDS: IBUPROFEN 600 MG TAB PO PRN (22:47)
--- NOTE | 2023-10-28 23:43 | Anesthesia Procedure Note ---
Date of Service October 28, 2023 Anesthesia Post Epidural Note Vital Signs Vital Signs: Temp Pulse Resp BP Pulse Ox O2 Del Method 36.7 C 74 18 118/71 98 Room Air 10/28/23 22:21 10/28/23 22:21 10/28/23 22:21 10/28/23 22:21 10/28/23 22:21 10/28/23 22:21 Notes Mental Status: alert / awake / arousable Nausea / Vomiting: adequately controlled Pain: adequately controlled Airway Patency, RR, SpO2: stable & adequate BP & HR: stable & adequate Hydration State: stable & adequate Neuraxial Anesthesia: was administered and sensory block is resolving Anesthetic Complications: no major complications apparent and Pt Satisfied with anesthetic care Epidural: Removed without complications and With tip intact
--- NOTE | 2023-10-29 06:12 | Obstetrical Progress Note ---
Date of Service October 29, 2023 Assessment & Plan (1) Encounter for assessment: Plan 33 y/o PPD#1: Eating well, voiding well, ambulating well Vitals reviewed, WNL Pain well controlled with Motrin Routine post care - OOB, ambulation, diet progression as tolerated Will have 6 week follow up with Dr. Trevizo Subjective Ambulation: ambulating normally Voiding: no voiding problems Passing Gas:: Yes Diet Tolerance:: regular diet Lochia:: Small Feeding Type:: breast feeding pain well controlled with Motrin Review of Systems -Denies fever or chills -Denies dyspnea, chest pain, or palpitations -Denies dysuria -Denies headache or changes in vision Physical Exam General: Alert and oriented. No acute distress Cardiac: Regular rate and rhythm, no murmurs appreciated Respiratory: Lungs clear to auscultation bilaterally, No increased work of breathing Abdominal: Soft, non-tender, non-distended. Bowel sounds present. Uterus: Uterine fundus firm, palpable below umbilicus Extremities: No lower extremity edema, calves non-tender bilaterally Results & Data Vital Signs (Past 12 Hours) Vital Signs Temp Pulse Pulse Resp BP BP Pulse Ox 10/29/23 03:38 36.7 C 63 18 116/72 98 10/28/23 22:21 36.7 C 74 18 118/71 98 10/28/23 21:03 84 10/28/23 21:03 115/66 10/28/23 20:48 68 10/28/23 20:48 105/67 10/28/23 20:33 69 10/28/23 20:33 103/61 10/28/23 20:18 18 10/28/23 20:18 75 10/28/23 20:18 117/62 10/28/23 20:03 75 10/28/23 20:03 117/59 L 10/28/23 19:48 80 10/28/23 19:48 131/56 L 10/28/23 19:33 79 10/28/23 19:33 20 118/65 10/28/23 19:32 96 10/28/23 19:32 83 10/28/23 19:27 96 10/28/23 19:27 87 10/28/23 19:22 91 10/28/23 19:22 109 H 10/28/23 19:21 89 L 10/28/23 19:21 108 H 10/28/23 19:19 81 10/28/23 19:19 121/65 10/28/23 19:17 97 10/28/23 19:17 92 H 10/28/23 19:12 97 10/28/23 19:12 90 10/28/23 19:07 98 10/28/23 19:07 89 10/28/23 19:03 90 10/28/23 19:03 121/80 10/28/23 19:02 98 10/28/23 19:02 89 10/28/23 18:57 96 10/28/23 18:57 102 H 10/28/23 18:52 97 10/28/23 18:52 84 10/28/23 18:48 85 10/28/23 18:48 129/77 10/28/23 18:47 98 10/28/23 18:47 85 10/28/23 18:42 99 10/28/23 18:42 89 10/28/23 18:38 93 10/28/23 18:38 95 H 10/28/23 18:37 99 10/28/23 18:37 79 10/28/23 18:33 71 10/28/23 18:33 121/66 10/28/23 18:32 98 10/28/23 18:32 71 10/28/23 18:28 88 L 10/28/23 18:28 94 H 10/28/23 18:27 97 10/28/23 18:27 90 10/28/23 18:22 98 10/28/23 18:22 90 10/28/23 18:18 92 H 10/28/23 18:18 119/69 10/28/23 18:17 98 10/28/23 18:17 93 H 10/28/23 18:12 98 10/28/23 18:12 86 O2 Del Method 10/29/23 03:38 Room Air 10/28/23 22:21 Room Air 10/28/23 21:03 10/28/23 21:03 10/28/23 20:48 10/28/23 20:48 10/28/23 20:33 10/28/23 20:33 10/28/23 20:18 10/28/23 20:18 10/28/23 20:18 10/28/23 20:03 10/28/23 20:03 10/28/23 19:48 10/28/23 19:48 10/28/23 19:33 10/28/23 19:33 10/28/23 19:32 10/28/23 19:32 10/28/23 19:27 10/28/23 19:27 10/28/23 19:22 10/28/23 19:22 10/28/23 19:21 10/28/23 19:21 10/28/23 19:19 10/28/23 19:19 10/28/23 19:17 10/28/23 19:17 10/28/23 19:12 10/28/23 19:12 10/28/23 19:07 10/28/23 19:07 10/28/23 19:03 10/28/23 19:03 10/28/23 19:02 10/28/23 19:02 10/28/23 18:57 10/28/23 18:57 10/28/23 18:52 10/28/23 18:52 10/28/23 18:48 10/28/23 18:48 10/28/23 18:47 10/28/23 18:47 10/28/23 18:42 10/28/23 18:42 10/28/23 18:38 10/28/23 18:38 10/28/23 18:37 10/28/23 18:37 10/28/23 18:33 10/28/23 18:33 10/28/23 18:32 10/28/23 18:32 10/28/23 18:28 10/28/23 18:28 10/28/23 18:27 10/28/23 18:27 10/28/23 18:22 10/28/23 18:22 10/28/23 18:18 10/28/23 18:18 10/28/23 18:17 10/28/23 18:17 10/28/23 18:12 10/28/23 18:12 Resident Activity Tracking Resident Involvement: Resident Care Provided Care Provided: OB Delivery
[2023-10-29 06:39] LABS: Hematocrit (blood only) 32.4 % (37.0-47.0); Hemoglobin 11.3 g/dl (12.0-16.0); Mean Corpuscular Hemoglobin 33.5 pg (25.0-34.0); Mean Corpuscular Hgb Conc 34.9 g/dL (32.0-36.0); Mean Corpuscular Volume 96.1 fL (80.0-100.0); Mean Platelet Volume 11.6 fL (9.4-12.4); Platelet Count 132 K/uL (130-400); RDW Coefficient of Variation 13.7 % (11.5-14.5); RDW Standard Deviation 48.1 fL (36.4-46.3); Red Blood Count 3.37 M/uL (4.20-5.40); White Blood Count 8.99 K/ul (4.8-10.8)
[2023-10-29] MEDS: PRENATAL VITAMIN 1 TAB PO SCH (07:46)
[2023-10-29] MEDS: bisacodyL 5 MG TABEC PO SCH (20:23)
--- NOTE | 2023-10-30 06:07 | Obstetrical Progress Note ---
Date of Service <Gonzalo Zamarripa DO - Last Filed: 10/30/23 06:07> October 30, 2023 Assessment & Plan <Gonzalo Zamarripa DO - Last Filed: 10/30/23 06:07> (1) Encounter for assessment: visit type: exam and care immediately after delivery Qualified Code(s): Z39.0 - Encounter for care and examination of mother immediately after delivery Plan 33 y/o PPD#2: Eating well, voiding well, ambulating well Vitals reviewed, WNL Pain well controlled with Motrin Routine post care - OOB, ambulation, diet progression as tolerated Will have 6 week follow up with Dr. Trevizo <Marilyn Wills MD, FACOG - Last Filed: 10/30/23 07:36> (1) Encounter for assessment: Subjective <Gonzalo Zamarripa DO - Last Filed: 10/30/23 06:07> Ambulation: ambulating normally Voiding: no voiding problems Passing Gas:: Yes Diet Tolerance:: regular diet Lochia:: Small Feeding Type:: breast feeding pain well controlled with Motrin Review of Systems -Denies fever or chills -Denies dyspnea, chest pain, or palpitations -Denies dysuria -Denies headache or changes in vision Physical Exam <Gonzalo Zamarripa DO - Last Filed: 10/30/23 06:07> General: Alert and oriented. No acute distress Cardiac: Regular rate and rhythm, no murmurs appreciated Respiratory: Lungs clear to auscultation bilaterally, No increased work of breathing Abdominal: Soft, non-tender, non-distended. Bowel sounds present. Uterus: Uterine fundus firm, palpable below umbilicus Extremities: No lower extremity edema, calves non-tender bilaterally Results & Data <Gonzalo Zamarripa DO - Last Filed: 10/30/23 06:07> Vital Signs (Past 12 Hours) Vital Signs Temp Pulse Resp BP Pulse Ox O2 Del Method 10/30/23 00:20 36.6 C 78 18 108/72 97 Room Air 10/29/23 20:18 36.7 C 69 18 116/79 97 Room Air Supervising Physician <Marilyn Wills MD, FACOG - Last Filed: 10/30/23 07:36> Co-Signing Physician Notes Resident Physician Supervision Note: I interviewed and examined the patient. Discussed with Dr. Zamarripa and agree with findings and plan as documented in the note. Any exceptions or clarifications are listed here: [None] Documented By: Marilyn Wills MD, FACOG Resident Activity Tracking <Gonzalo Zamarripa, DO - Last Filed: 10/30/23 06:07> Resident Involvement: Resident Care Provided Care Provided: OB Delivery
[2023-10-30 07:52] LABS: Hemoglobin 12.4 g/dl (12.0-16.0)
[2023-10-30 09:27] VITALS: BP 114/78; PULSE 67; RESP 16; TEMP 97.7; O2SAT 98
== END 2023-10-30 11:15 | disposition home or self-care (01) | DRG 807 ==
LOC: 4S1 10:29 → OPB 10:29 → 4S1 11:40 → 4E2 22:19
DX: O70.1 Second degree perineal laceration during delivery; Z37.0 Single live birth; Z3A.39 39 weeks gestation of pregnancy